=== PATIENT | female | born 1985 ===

== ENCOUNTER 2025-01-19 16:39 | Emergency (ER) | payer OTHER, SELFPAY ==
[2025-01-19 16:49] VITALS: BP 124/58
[2025-01-19 17:22] LABS: Hematocrit 44.2 % (37.0-47.0); Hemoglobin 15.7 g/dL (12.0-16.0); Mean Corp Hgb Conc. 35.5 g/dL (33.0-37.0); Mean Corpuscular Volume 90.4 fL (81.0-99.0); Nucleated Red Blood Cells % 0 %; Platelet Count 176 10^3/uL (130-400); Red Cell Dist. Width 10.8 % (11.5-14.5)
[2025-01-19 17:32] LABS: HCG, Serum Qualitative Screen Negative
[2025-01-19 17:34] LABS: ALT (SGPT) 19 U/L (0-35); AST (SGOT) 21 U/L (14-36); Albumin 5.2 g/dl (3.5-5.0); Alkaline Phosphatase 58 U/L (38-126); Blood Urea Nitrogen 12 mg/dl (7-17); Calcium 10.8 mg/dl (8.4-10.2); Carbon Dioxide 27 mmol/L (22-30); Chloride 103 mmol/L (98-107); Glucose 136 mg/dl (70-99); Lipase 50 U/L (23-300); Potassium 4.0 mmol/L (3.5-5.1); Sodium 139 mmol/L (135-145); Total Protein 8.6 g/dl (6.3-8.2); eGFR > 60.00
--- NOTE | 2025-01-19 21:05 | ED.GENMED ---
History of Present Illness
General
Chief Complaint: Abdominal Pain
Time Seen by Provider: 01/19/25 21:05
History of Present Illness
History of Present Illness:
PAST MEDICAL HISTORY AND REVIEW OF OLD RECORDS
- The patient denies any significant past medical history
Note:
CHIEF COMPLAINT(S)
Lower abdominal pain.
HISTORY OF PRESENT ILLNESS
The patient is a 39-year-old female presenting with lower abdominal pain that began yesterday and has persisted. She reports a history of intermittent sharp pain in the right lower quadrant over the past few weeks, occurring occasionally when
getting up from a resting position. However, since yesterday, the pain has become constant and is now diffuse across the lower abdomen. The patient also experiences a sensation of pressure and pain radiating to the lower back and buttock area, along
with increased gassiness without relief. There have been no episodes of vomiting, constipation, or diarrhea. The patient contacted her migratory worker-baggage inspector and had an appointment, but the pain persisted after the visit. Her
migratory worker-baggage inspector recommended an ultrasound, which was not performed due to time constraints.
ADDITIONAL HISTORY OBTAINED FROM SOURCES OTHER THAN THE PATIENT
The patient met with her migratory worker-baggage inspector who advised an ultrasound to explore the cause of her abdominal pain, but it was not completed.
SOCIAL HISTORY
The patient stopped using control pills several months ago. She reports changes in her menstrual cycle since discontinuation, with one irregular cycle between September and November before returning to normal. She previously used control for about
seven years for family planning.
REVIEW OF SYSTEMS
- Gastrointestinal: Persistent lower abdominal pain, increased gassiness without relief.
- Genitourinary: Increased frequency of urination.
- Musculoskeletal: Pressure and pain in the lower back radiating to the buttocks.
PHYSICAL EXAM
General: Alert, no acute distress.
Skin: Warm, dry.
Head: Normocephalic, atraumatic.
Neck: Supple, trachea midline.
Eye, Ears, Nose, Mouth, and Throat: Oral mucosa moist.
Cardiovascular: Normal peripheral perfusion, No edema.
Respiratory: Respirations are non-labored. Breath sounds are clear.
Gastrointestinal: Abdomen nondistended. Minimal right lower quadrant tenderness, no left-sided tenderness
Back: Normal range of motion, normal alignment.
Musculoskeletal: Normal range of motion, normal strength.
Neurological: Alert and oriented to person, place, time, and situation, No focal neurological deficit observed.
Psychiatric: Cooperative, appropriate mood & affect.
PLAN
1. A computed tomography (CT) scan of the abdomen and pelvis with intravenous contrast will be performed to further evaluate the patients symptoms.
2. Patient consented to provide a urine sample for analysis.
3. Non-narcotic pain management with medication, such as ketorolac, offered to the patient for symptomatic relief.
DIFFERENTIAL DIAGNOSIS
The Differential Diagnosis includes, in no particular order and is not limited to:
1. Ovarian cyst.
2. Appendicitis.
3. Pelvic inflammatory disease.
4. Endometriosis.
5. Urinary tract infection.
6. Diverticulitis.
7. Gastroenteritis.
8. Constipation.
9. Adnexal mass.
10. Musculoskeletal strain.
RADIOLOGY
- CT imaging obtained which suggests a right ovarian cyst with some free fluid
LABS
- White count 5.4, hCG negative, chemistries unremarkable, lipase normal
UPDATE
- The patient declined analgesia initially however later excepted Toradol
SUMMARY OF ENCOUNTER
The patient, a 39-year-old female, presented to the emergency department with lower abdominal pain persisting since yesterday. A CT scan was performed, which indicated a small ovarian cyst on the right side, along with some free fluid in the
pelvis�common findings in females. While a ruptured cyst could explain some of her symptoms, the diffuse nature of her pain across the abdomen suggests additional or alternative causes. The patient declined narcotic pain relief, opting to wait for a
urine test to rule out other conditions.
PLAN
1. Administer non-narcotic pain medication ketorolac for symptomatic relief. 2. Ensure urine sample analysis is conducted to rule out urinary tract infection or other related conditions.
INDEPENDENT REVIEW OF LABS AND INTERPRETATION OF TESTS
My independent interpretation of the CT scan is the presence of a small ovarian cyst on the right side with some free fluid in the pelvis, likely benign and usually resolving on its own.
PATIENT EDUCATION AND COUNSELING
Educated the patient on the findings of the CT scan, the benign nature of small ovarian cysts, and the typical self-resolving course for such cysts. Discussed the potential for ovarian cyst pain to radiate to the back and the commonality of free
fluid in the pelvis. Advised the patient to manage pain with ibuprofen (motrin) or similar NSAIDs and to monitor for symptom changes.
FOLLOW-UP INSTRUCTIONS
Recommended follow-up with her primary care physician or migratory worker-baggage inspector if symptoms persist or worsen.
MEDICATION RECONCILIATION
Administered ketorolac for non-narcotic pain relief while awaiting urine test results.
MEDICAL DECISION MAKING
- Complexity of Data Reviewed: Differential diagnosis includes ovarian cyst, appendicitis, pelvic inflammatory disease, endometriosis, urinary tract infection, diverticulitis, gastroenteritis, constipation, adnexal mass, musculoskeletal strain.
- Data:
Category 1: My independent interpretation of the CT scan indicated a small ovarian cyst with some pelvic free fluid. Reviewed patients prior discussions with her migratory worker-baggage inspector about an ultrasound recommendation.
Category 2: Clinical information was obtained from the patient�s prior communication with her migratory worker-baggage inspector, confirming recommendations for additional imaging.
- Risk: Consideration of Admission/Observation: Escalation of care including admission/observation was considered. However, the patient is safe for outpatient management with close follow-up due to reassuring work-up and stable symptoms.
DIAGNOSIS
- N83.0 Follicular cyst of ovary.
- R10.2 Pelvic and perineal pain.
A second urinalysis was obtained that she had significant amount of squamous epithelial cells. Second urinalysis again shows significant amount of squamous epithelial cell suggesting contaminated specimen however a number of white cells in the
urine is only 6-10 per high-powered field. I sent a prescription for an antibiotic to her pharmacy as she does have urinary frequency increase. She will follow-up with her baggage inspector through [place]. She also scheduling an ultrasound through
her send. She reports improvement after Toradol was given.
Phy Exam
Physical Exam
Physical Exam:
See HPI
Course
Orders/Labs/Results
Orders:
Orders
01/19/25 16:52
Test Result ONCE
01/19/25 16:58
Complete Blood Count/With Diff Urgent
Comprehensive Metabolic Panel Urgent
HCG, Serum Qualitative Screen Urgent
Lipase Urgent
01/19/25 21:21
CT Abd/pelvis W Iv Cont Urgent
Comment:
Reason For Exam: lower tender; intermittent RLQ
01/19/25 23:31
Urinalysis Reflex To Culture Urgent
Date Specimen was Collected: 01/19/25
Time Specimen was Collected: 23:29
Urine Microscopic Reflex Cult Urgent
Urine Culture Urgent
BRITTANY Source: U
Specimen Description:
Date Specimen was Collected: 01/19/25
Time Specimen was Collected: 23:29
01/19/25 23:36
Ketorolac [Toradol] 15 mg IV NOW STA
01/20/25 00:13
Urinalysis Reflex To Culture Urgent
Date Specimen was Collected: 01/20/25
Time Specimen was Collected: 00:10
Urine Microscopic Reflex Cult Urgent
Urine Culture Urgent
BRITTANY Source: U
Specimen Description:
Date Specimen was Collected: 01/20/25
Time Specimen was Collected: 00:10
Abnormal Lab Results
01/19/25 01/19/25 01/20/25
16:58 23:31 00:13
MCH 32.1 H pg
(27.0-31.0)
RDW 10.8 L %
(11.5-14.5)
MPV 12.3 H fL
(7.4-10.4)
Glucose 136 H mg/dl
(70-99)
Calcium 10.8 H mg/dl
(8.4-10.2)
Total Protein 8.6 H g/dl
(6.3-8.2)
Albumin 5.2 H g/dl
(3.5-5.0)
Urine Ketones 1+ A
(Negative)
Ur Occult Blood Reflex 4+ A
(Negative)
Leukocyte Esterase Rfl 3+ A 1+ A
(Negative) (Negative)
Urine WBC (Reflex) 26-30 A /HPF
(0-5)
Urine Bacteria (Reflex) Many A Few A
(Negative) (Negative)
Urine Albumin (Reflex) 1+ A 2+ A
(Neg - Trace) (Neg - Trace)
01/19/25 16:58
01/19/25 16:58
Vital Signs
Initial and Last Documented VS:
Initial Vital Signs
Temp Pulse Resp BP Pulse Ox
36.8 C 98 16 124/58 99
01/19/25 16:49 01/19/25 16:49 01/19/25 16:49 01/19/25 16:49 01/19/25 16:49
Last Documented Vital Signs
Temp Pulse Resp BP Pulse Ox
36.8 C 87 16 108/56 99
01/19/25 16:49 01/19/25 23:09 01/19/25 23:09 01/19/25 23:09 01/19/25 23:09
*Pulse Oximetry
SaO2: 99
Oxygen Mode of Delivery: Room air
Patient hypoxic: no
*Critical Care Note
Total Time (30-74mins, 75-104mins- exclusive of procedures): Not Applicable
ED Attending Note
-
Portions of this chart may have been created with voice recognition software.� Occasional wrong word or��sound alike� substitutions may have occurred due to the inherent limitations of voice recognition software.
Discharge Plan
Departure
Patient Disposition: Home (Routine Discharge)
Date of Disposition: 01/20/25
Time of Disposition: 01:03
Patient with high blood pressure during this ER visit?: Yes
Discharge Problem:
Ovarian cyst
Instructions: Ovarian Cyst (DC), Abdominal Pain
Prescriptions:
New
cephalexin 500 mg tablet
500 mg PO Q8H Qty: 21 0RF
Referrals:
Richa Brown MD [Family Provider, Internal Medicine]
Activity Restrictions/Additional Instructions:
I recommend 3-4 [id number] ibuprofen (Motrin) every 8 hours with food for a few days. Return here if worse. The CAT scan shows a probable right ovarian corpus luteum cyst/dominant follicle measuring up to 1.9 cm and there is a small amount
of free fluid in the pelvis likely physiologic 'but could reflect ruptured follicle/cyst. Normal appendix was visualized. There was no other abnormality noted on the abdomen/pelvis CT. The bladder was normal. Both urinalyses suggest the
possibility of infection however a urine culture is pending. I am sending a prescription to your pharmacy for an antibiotic while we await urine culture. Your white blood cell count is normal. test is negative. Liver, kidney, pancreas
levels are all normal.
Interventions
Interventions:
*Risk Screen - Suicide Last Done: 01/19/25 16:52
*General Assessment Last Done: 01/19/25 23:12
*Neglect/Abuse Screening Last Done: 01/19/25 16:52
*ED- Fall Risk Assessment Last Done: 01/19/25 23:12
*ED COVID-19 Vaccine History Last Done: 01/19/25 23:12
RT-Uyzhiy-Xgctxticmo Assessment Last Done: 01/19/25 23:12
Discharge Date and Time
Print Language: BULGARIAN
[2025-01-19 23:09] VITALS: BP 108/56
[2025-01-19 23:15] VITALS: BMI 20.3
[2025-01-19 23:38] LABS: Urine Character Slightly Cloudy (Clear)
[2025-01-19 23:51] LABS: Urine Red Blood Cell None Seen /HPF (0-2); Urine Squamous Cell >30 /LPF (Few); Urine White Cell 26-30 /HPF (0-5)
[2025-01-20] MEDS: TORADOL 15 MG IV (00:15)
[2025-01-20 00:36] LABS: Urine Character Clear (Clear)
[2025-01-20 00:53] LABS: Urine Squamous Cell >30 /LPF (Few)
[2025-01-20 00:55] LABS: Urine Red Blood Cell None Seen /HPF (0-2)
[2025-01-20 01:25] VITALS: BP 100/66
== END 2025-01-20 01:25 | disposition home or self-care (01) ==
LOC: EMR 16:39
PROVIDERS: Emergency Medicine; EMERGENCY PHYSICIAN Emergency Medicine; FAMILY PHYSICIAN Internal Medicine
DX: N83.201 Unspecified ovarian cyst, right side (principal); R10.2 Pelvic and perineal pain
CPT/HCPCS: 96374; 99284; 74177; 80053; 81003; 81015; 83690; 84703; 85025; 87077; 87086; 87186; Q9967